=== PATIENT | male | born 1960 | race Caucasian/White ===

== ENCOUNTER 2019-09-08 19:12 | Emergency (ER) | payer BC ==
[2019-09-08] MEDS ORDERED: HYDROCODONE/APAP 10/325 TAB ONE (20:37)
[2019-09-08] MEDS ORDERED: TETANUS & DIPHTHERIA TOX,ADULT 0.5 ML VIAL ONE (20:38)
[2019-09-08] MEDS ORDERED: LIDOCAINE 1% MPF 30 ML VIAL ONE (20:38)
--- NOTE | 2019-09-08 20:42 | RAD REPORT ---
EXAM DESCRIPTION: RAD - Hand Right 3 View - 09/08/2019 8:30 pm CLINICAL HISTORY: SMASH INJURY COMPARISON: No comparisons FINDINGS: Comminuted tuft fracture involves the distal phalanx of the fourth finger with moderate soto rrounding soft tissue swelling.
--- NOTE | 2019-09-08 21:13 | EDPHYS ---
Physician Documentation [facility] Name: Des Galicia Age: 58 yrs Sex: Male : 1960 Arrival Date: 09/08/2019 Time: 19:14 Bed 4 Private MD: ED Physician Salvatore Serna Historical: - Allergies: 09/08 19:31 Percocet; ss 19:31 Percodan; ss - PMHx: 19:31 Hypertension; ss - PSHx: 19:31 Hernia repair; hip sx; ss - Immunization history:: Adult Immunizations up to date. - Coronavirus screen:: The patient has NOT traveled to [place], [place], or [place] in the past 14 days. Proceed with normal triage process as indicated. - Social history:: Smoking status: Patient reports use of chewing tobacco. Patient denies any tobacco usage or history of. - Ebola Screening: : Patient denies exposure to infectious person Patient denies travel to an Ebola-affected area in the 21 days before illness onset. Vital Signs: 19:31 BP 164 / 100; Pulse 62; Resp 16; Temp 98.1(TE); Pulse Ox 97% on R/A; Weight 131.54 kg; ss Height 5 ft. 11 in. (180.34 cm); Pain 9/10; 20:00 BP 143 / 91; Pulse 68; Resp 18; Pulse Ox 100% on R/A; ea 22:04 BP 138 / 88; Pulse 70; Resp 18; Pulse Ox 98% ; ea 19:31 Body Mass Index 40.45 (131.54 kg, 180.34 cm) ss Laceration: 21:43 Wound Repair of 6.5cm ( 2.6in ) subcutaneous laceration to palmar aspect of distal la1 phalanx of right ring finger. Irregularly shaped.. Distal neuro/vascular/tendon intact. Anesthesia: Local anesthetic administered with 6 mls of 1% lidocaine. Wound prep: Moderate cleansing, Copious irrigation. Skin closed with 13 4-0 Prolene using simple sutures and sterile technique. Dressed with tube gauze, non-adherent dressing. Patient tolerated well. MDM: 19:53 Patient medically screened. 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 Exp: ea 08/28/2021. Lot #: [id number]. } Route: IM; Site: left deltoid; 21:11 Follow up: Response: No adverse reaction ea 20:40 Drug: Lidocaine (1 %) 20 ml {Note: by provider.} Volume: 20 ml; Route: Infiltration; ea 21:30 Drug: Cleocin 600 mg Route: IM; Site: left gluteus; ea 21:55 Follow up: Response: No adverse reaction ea Disposition: 09/09 06:47 Co-signature as Attending Physician, Salvatore Serna MD I agree with the assessment and tw4 plan of care. Disposition: 09/08/19 21:12 Discharged to Home. Impression: Displaced fracture of distal phalanx of right ring finger, Laceration of blood vessel of right ring finger. - Condition is Stable. - Discharge Instructions: Laceration Care, Adult, Finger Fracture, [id number]. - Prescriptions for Cleocin 300 mg Oral Capsule - take 1 capsule by ORAL route every 6 hours for 10 days; 40 capsule. Ibuprofen 800 mg Oral Tablet - take 1 tablet by ORAL route every 8 hours As needed take with food; 30 tablet. Tylenol- Codeine #4 300-60 mg Oral Tablet - take 1 tablet by ORAL route every 6 hours As needed; 6 tablet. - Work release form, Medication Reconciliation Form, Thank You Letter, Antibiotic Education, Prescription Opioid Use form. - Follow up: Private Physician; When: Upon discharge from the Emergency Department; Reason: Recheck today's complaints, Continuance of care. - Problem is new. - Symptoms have improved. Addendum: 09/23/2019 05:22 Addendum: Pt is a 58 year old male that sustained a crush injury to his left 4 th digit t w4 of the hand. 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 The object weighed approximately 500 lbs. Pt did not sustain any other injury to left hand or wrist. Pt denies numbness or weakness to left hand . Addendum: ROS: EXT: POSITIVE FOR INJURY TO LEFT FINGER, NEGATIVE FOR DECREASED ROM, NEGATIVE FOR WEAKNESS, NUMBNESS . All other systems negative except as marked. Addendum: PHYSICAL EXAM: General: well developed well nourished male in NAD. Ext: 6.5 cm irregular shaped laceration to distal 4th digit, bleeding controlled with pressure, sensation intact, no other injury to left wrist or hand. Signatures: Dispatcher [employer] EDMS Leah Morales RN RN ss Attema, Lee, SWING TENDER-C SWING TENDER-Cla1 Maria T Black RN RN ea Wadley, Terrence, MD MD tw4 Corrections: (The following items were deleted from the chart) 09/08 22:03 21:12 09/08/2019 21:12 Discharged to Home. Impression: Displaced fracture of distal ea phalanx of right ring finger; Laceration of blood vessel of right ring finger. Condition is Stable. Forms are Medication Reconciliation Form, Thank You Letter, Antibiotic Education, Prescription Opioid Use. Follow up: Private Physician; When: Upon discharge from the Emergency Department; Reason: Recheck today's complaints, Continuance of care. Problem is new. Symptoms have improved. tw4
--- NOTE | 2019-09-08 21:13 | ER ---
Nurse's Notes [facility] Name: Des Galicia Age: 58 yrs Sex: Male : 1960 Arrival Date: 09/08/2019 Time: 19:14 Bed 4 Private MD: Diagnosis: Displaced fracture of distal phalanx of right ring finger;Laceration of blood vessel of right ring finger Presentation: 09/08 19:29 Presenting complaint: Patient states: Smash injury to L fourth finger 1 hour ago. Small ss amount of bleeding noted at this time that is controlled with pressure. Object that caused injury was approximately 500 lbs. Transition of care: patient was not received from another setting of care. Onset of symptoms was September 08, 2019. Risk Assessment: Do you want to hurt yourself or someone else? Patient reports no desire to harm self or others. Initial Sepsis Screen: Does the patient meet any 2 criteria? No. Patient's initial sepsis screen is negative. Does the patient have a suspected source of infection? No. Patient's initial sepsis screen is negative. Care prior to arrival: None. 19:29 Method Of Arrival: Ambulatory ss 19:29 Acuity: YUNIEL 2 ss Triage Assessment: 19:50 General: Appears uncomfortable, Behavior is calm, cooperative, appropriate for age. ea Injury Description: Laceration sustained to palmar aspect of distal phalanx of right ring finger. Historical: - Allergies: 19:31 Percocet; ss 19:31 Percodan; ss - PMHx: 19:31 Hypertension; ss - PSHx: 19:31 Hernia repair; hip sx; ss - Immunization history:: Adult Immunizations up to date. - Coronavirus screen:: The patient has NOT traveled to [place], [place], or [place] in the past 14 days. Proceed with normal triage process as indicated. - Social history:: Smoking status: Patient reports use of chewing tobacco. Patient denies any tobacco usage or history of. - Ebola Screening: : Patient denies exposure to infectious person Patient denies travel to an Ebola-affected area in the 21 days before illness onset. Screenin:50 Abuse screen: Denies threats or abuse. Nutritional screening: No deficits noted. ea Tuberculosis screening: No symptoms or risk factors identified. Fall Risk None identified. Assessment: 19:50 General: Appears uncomfortable, Behavior is appropriate for age. Pain: Complains of ea pain in right hand. Neuro: Level of Consciousness is awake, alert, obeys commands, Oriented to person, place, time, situation. Cardiovascular: Patient's skin is warm and dry. Respiratory: Airway is patent Respiratory effort is even, unlabored, Respiratory pattern is regular, symmetrical. Musculoskeletal: Swelling present in palmar aspect of distal phalanx of right ring finger. 20:45 Reassessment: Patient and/or family updated on plan of care and expected duration. Pain ea level reassessed. Patient is alert, oriented x 3, equal unlabored respirations, skin warm/dry/pink. 21:58 Reassessment: Patient and/or family updated on plan of care and expected duration. Pain ea level reassessed. Patient is alert, oriented x 3, equal unlabored respirations, skin warm/dry/pink. Discharge instruction given to patient, verbalized the understanding of instruction. Pt left ED ambulatory accompanied by family. Vital Signs: 19:31 BP 164 / 100; Pulse 62; Resp 16; Temp 98.1(TE); Pulse Ox 97% on R/A; Weight 131.54 kg; ss Height 5 ft. 11 in. (180.34 cm); Pain 9/10; 20:00 BP 143 / 91; Pulse 68; Resp 18; Pulse Ox 100% on R/A; ea 22:04 BP 138 / 88; Pulse 70; Resp 18; Pulse Ox 98% ; ea 19:31 Body Mass Index 40.45 (131.54 kg, 180.34 cm) ED Course: 19:14 Patient arrived in ED. cf2 19:30 Triage completed. ss 19:31 Arm band placed on right wrist. ss 19:48 Maria T Black, RN is Primary Nurse. ea 19:50 Patient has correct armband on for positive identification. Bed in low position. Call ea light in reach. Side rails up X2. 19:53 Salvatore Serna MD is Attending Physician. tw4 20:31 XRAY Hand RIGHT 3 View In Process Unspecified. EDMS 21:13 Assist provider with laceration repair on palmar aspect of distal phalanx of right ring ea finger that was between 2.6 to 7.5 cm using sutures. Set up tray. Performed by Salvatore Serna MD Dressed with Kerlix, Neosporin, Patient tolerated well. 22:03 Patient did not have IV access during this emergency room visit. 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 Exp: ea 08/28/2021. Lot #: [id number]. } Route: IM; Site: left deltoid; 21:11 Follow up: Response: No adverse reaction ea 20:40 Drug: Lidocaine (1 %) 20 ml {Note: by provider.} Volume: 20 ml; Route: Infiltration; ea 21:30 Drug: Cleocin 600 mg Route: IM; Site: left gluteus; ea 21:55 Follow up: Response: No adverse reaction ea Outcome: 21:12 Discharge ordered by . tw4 22:03 Discharged to home ambulatory, with significant other. ea 22:03 Condition: stable 22:03 Discharge instructions given to patient, Instructed on discharge instructions, follow up and referral plans. medication usage, Demonstrated understanding of instructions, follow-up care, medications, Prescriptions given X 3. 22:03 Patient left the ED. ea Signatures: Dispatcher [employer] EDVA Leah Morales RN RN ss Antunez, Elena RN Salvatore Kwok ea, MD MD tw4 Abisai Jacobsen cf2 Corrections: (The following items were deleted from the chart) 19:32 19:29 Presenting complaint: Patient states: Smash injury to L fourth finger 1 hour ago. ss Small amount of bleeding noted at this time that is controlled with pressure. ss 20:40 20:39 Garner 10 mg-325 mg 1 tabs PO ea ea 21:12 21:11 Response: No adverse reaction ea ea
[2019-09-08] MEDS ORDERED: CLINDAMYCIN IV 150 MG/ML (4 mL) VIAL ONE (21:22)
[2019-09-08 22:26] VITALS: TEMP 98.1
[2019-09-08 22:30] VITALS: BP 138/88; O2SAT 98
== END 2019-09-08 22:03 | disposition home or self-care (01) ==
LOC: ER 19:12
PROC: 0JQJ0ZZ Repair Right Hand Subcutaneous Tissue and Fascia, Open Approach (ICD-10-PCS; principal; 2019-09-08)
DX: S62.634A Displaced fracture of distal phalanx of right ring finger, initial encounter for closed fracture (principal); S65.514A Laceration of blood vessel of right ring finger, initial encounter; X58.XXXA Exposure to other specified factors, initial encounter; Y93.9 Activity, unspecified; Y92.9 Unspecified place or not applicable; Z23 Encounter for immunization; Z88.5 Allergy status to narcotic agent; F17.220 Nicotine dependence, chewing tobacco, uncomplicated; I10 Essential (primary) hypertension
CPT/HCPCS: 73130; 90471; 90714; 96372; 99284; 12002; S0077

== ENCOUNTER 2021-07-28 12:33 | Emergency (ER) | payer BC ==
[2021-07-28] MEDS ORDERED: CASIRIVIMAB/IMDEVIMAB 10 ML VIAL ONE (14:36)
[2021-07-28] MEDS ORDERED: NA CHLORIDE 0.9% 250 ML ONE (14:37)
--- NOTE | 2021-07-28 15:20 | EDPHYS ---
Physician Documentation [facility] Name: Des Galicia Age: 60 yrs Sex: Male : 1960 Arrival Date: 07/28/2021 Time: 12:34 Bed 23 Private MD: Stu Haji B ED Physician Roland Oakley HPI: 07/28 15:17 This 60 yrs old Male presents to ER via Ambulatory with complaints of covid+ otc test. kb 15:17 The patient or guardian reports cough, that is intermittent, described as mild, flu kb symptoms, low-grade fever, myalgias. Onset: The symptoms/episode began/occurred yesterday. Severity of symptoms: At their worst the symptoms were moderate, in the emergency department the symptoms are unchanged. The patient has not experienced similar symptoms in the past. The patient has not recently seen a physician. 15:18 Modifying factors: The symptoms are alleviated by nothing, the symptoms are aggravated kb by nothing. Associated signs and symptoms: Pertinent positives: sore throat. Pt reports bodyaches, cough, sore throat, headache since last night. Took a home COVID test and was positive. Called PCP and was told to come to ER for a test and antibody infusion. Pt states he wants to be tested to make sure he has it before getting the infusion. Historical: - Allergies: 12:49 Percocet; vg1 12:49 Percodan; vg1 - PMHx: 12:49 Hypertension; Cancer-Skin; Arterial Ventricular Necrosis; vg1 - PSHx: 12:49 Spinal Fusion; vg1 - Immunization history:: Client reports receiving the 2nd dose of the Covid vaccine. - Social history:: Smoking status: Patient denies any tobacco usage or history of. ROS: 15:16 Abdomen/GI: Negative for abdominal pain, nausea, vomiting, diarrhea, and constipation. kb 15:16 Constitutional: Positive for body aches, fatigue, malaise. 15:16 ENT: Positive for sore throat. 15:16 Respiratory: Positive for cough, Negative for dyspnea on exertion, hemoptysis, orthopnea, pleurisy, shortness of breath, sputum production, wheezing. 15:16 Neuro: Positive for headache. 15:16 All other systems are negative. Exam: 15:17 Constitutional: This is a well developed, well nourished patient who is awake, alert, kb and in no acute distress. Head/Face: Normocephalic, atraumatic. ENT: Moist Mucous membranes Cardiovascular: Regular rate and rhythm with a normal S1 and S2. No gallops, murmurs, or rubs. No pulse deficits. Respiratory: Respirations even and unlabored. No increased work of breathing. Talking in full sentences Skin: Warm, dry with normal turgor. Normal color. MS/ Extremity: Pulses equal, no cyanosis. Neurovascular intact. Full, normal range of motion. Neuro: Awake and alert, GCS 15, oriented to person, place, time, and situation. Moves all extremities. Normal gait. Psych: Awake, alert, with orientation to person, place and time. Behavior, mood, and affect are within normal limits. Vital Signs: 12:45 BP 168 / 81; Pulse 92; Resp 20; Temp 99.9(O); Pulse Ox 96% ; Weight 134.72 kg; Height 5 vg1 ft. 11 in. (180.34 cm); Pain 7/10; 15:16 BP 151 / 72; Pulse 89; Resp 18 S; Temp 99.9(TE); Pulse Ox 97% on R/A; iw 12:45 Body Mass Index 41.42 (134.72 kg, 180.34 cm) vg1 MDM: 12:49 Patient medically screened. kb 15:17 Data reviewed: vital signs, nurses notes. Data interpreted: Pulse oximetry: on room air kb is 96 %. Interpretation: normal. Counseling: I had a detailed discussion with the patient and/or guardian regarding: the historical points, exam findings, and any diagnostic results supporting the discharge/admit diagnosis, lab results, the need for outpatient follow up, a family practitioner, to return to the emergency department if symptoms worsen or persist or if there are any questions or concerns that arise at home. 07/28 12:49 Order name: COVID-19 SARS RT PCR (Document "Date of Onset" if Symptomatic); Complete kb Time: 14:25 Administered Medications: 15:11 Drug: REGEN-COV Dose Pack 120 mg/mL-120 mg/mL (EUA) 1 application Route: IV; Rate: iw calculated rate; Site: right antecubital; 16:15 Follow up: IV Status: Completed infusion iw 15:34 Drug: Tylenol 1000 mg Route: PO; iw 16:30 Follow up: Response: No adverse reaction iw Disposition: 19:51 Co-signature as Attending Physician, Roland Oakley MD I agree with the assessment and kdr plan of care. Disposition Summary: 07/28/21 15:19 Discharge Ordered Location: Home kb Condition: Stable kb Diagnosis - Coronavirus infection, unspecified kb Followup: kb - With: Emergency Department - When: As needed - Reason: Worsening of condition Followup: kb - With: Private Physician - When: 2 - 3 days - Reason: Recheck today's complaints, Continuance of care, Re-evaluation by your physician Discharge Instructions: - Discharge Summary Sheet kb - Viral Respiratory Infection, Urnd-Oo-Txoj kb - COVID-19 kb Forms: - Medication Reconciliation Form kb - Thank You Letter kb - Antibiotic Education kb - Prescription Opioid Use kb Signatures: Dispatcher [employer] EDMS Li Sosa, AERIAL ADVERTISER-C YESENIA-Roland Nunez MD MD kdr Williams, Irene, RN RN Celine Crump RN RN vg1
--- NOTE | 2021-07-28 15:20 | ER ---
Nurse's Notes [facility] Name: Des Galicia Age: 60 yrs Sex: Male : 1960 Arrival Date: 07/28/2021 Time: 12:34 Bed 23 Private MD: Stu Haji B Diagnosis: Coronavirus infection, unspecified Presentation: 07/28 12:45 Chief complaint: Patient states: headache, achiness, sore throat, and cough began last vg1 night. Denies NVD. States took home covid test and results are positive; was told by PCP Dr Haji to come to ED to take another covid test 'to be sure' and to receive the antibodies. Coronavirus screen: Vaccine status: Patient reports receiving the 2nd dose of the covid vaccine. Client denies travel out of the [place] in the last 14 days. Ebola Screen: Patient negative for fever greater than or equal to 101.5 degrees Fahrenheit, and additional compatible Ebola Virus Disease symptoms. Initial Sepsis Screen: Does the patient meet any 2 criteria? No. Patient's initial sepsis screen is negative. Does the patient have a suspected source of infection? No. Patient's initial sepsis screen is negative. Risk Assessment: Do you want to hurt yourself or someone else? Patient reports no desire to harm self or others. Onset of symptoms was July 27, 2021. 12:45 Method Of Arrival: Ambulatory vg1 12:45 Acuity: YUNIEL 3 vg1 Triage Assessment: 12:49 General: Appears in no apparent distress. uncomfortable, Behavior is calm, cooperative. vg1 Pain: Complains of pain in generalized body Pain currently is 8 out of 10 on a pain scale. Respiratory: Airway is patent Respiratory effort is even, unlabored. Historical: - Allergies: 12:49 Percocet; vg1 12:49 Percodan; vg1 - PMHx: 12:49 Hypertension; Cancer-Skin; Arterial Ventricular Necrosis; vg1 - PSHx: 12:49 Spinal Fusion; vg1 - Immunization history:: Client reports receiving the 2nd dose of the Covid vaccine. - Social history:: Smoking status: Patient denies any tobacco usage or history of. Screenin:06 Abuse screen: Denies threats or abuse. Denies injuries from another. Nutritional iw screening: No deficits noted. Tuberculosis screening: No symptoms or risk factors identified. Fall Risk None identified. Assessment: 13:05 General: Appears in no apparent distress. Behavior is calm, cooperative. General: iw Reports feeling ill for fatigue for. Neuro: Level of Consciousness is awake, alert, obeys commands, Oriented to person, place, time, situation, Moves all extremities. Full function. Cardiovascular: Patient's skin is warm and dry. Respiratory: Respiratory effort is even, unlabored, Respiratory pattern is regular, symmetrical. GI: Abdomen is non-distended. Derm: Skin is intact, is healthy with good turgor. Musculoskeletal: Range of motion: intact in all extremities. 15:17 Reassessment: Patient appears in no apparent distress at this time. Patient and/or iw family updated on plan of care and expected duration. Pain level reassessed. Patient is alert, oriented x 3, equal unlabored respirations, skin warm/dry/pink. 16:15 Reassessment: infusion complete, will monitor for one hour post infusion per protocol. iw Vital Signs: 12:45 BP 168 / 81; Pulse 92; Resp 20; Temp 99.9(O); Pulse Ox 96% ; Weight 134.72 kg; Height 5 vg1 ft. 11 in. (180.34 cm); Pain 7/10; 15:16 BP 151 / 72; Pulse 89; Resp 18 S; Temp 99.9(TE); Pulse Ox 97% on R/A; iw 12:45 Body Mass Index 41.42 (134.72 kg, 180.34 cm) vg1 ED Course: 12:34 Patient arrived in ED. am2 12:34 Stu Haji MD is Private Physician. am2 12:49 Triage completed. vg1 12:49 Li [facility]C [facility]. kb 12:49 Roland Oakley MD is Attending Physician. kb 12:49 Arm band placed on. vg1 13:03 COVID-19 SARS RT PCR (Document "Date of Onset" if Symptomatic) Sent. iw 13:05 Antoinette Mariee, RN is Primary Nurse. iw 15:00 Inserted saline lock: 20 gauge in right antecubital area, using aseptic technique. iw Administered Medications: 15:11 Drug: REGEN-COV Dose Pack 120 mg/mL-120 mg/mL (EUA) 1 application Route: IV; Rate: iw calculated rate; Site: right antecubital; 16:15 Follow up: IV Status: Completed infusion iw 15:34 Drug: Tylenol 1000 mg Route: PO; iw 16:30 Follow up: Response: No adverse reaction iw Outcome: 15:19 Discharge ordered by MD. ingram 17:19 Patient left the ED. kj1 Signatures: Li Sosa, IMAGE SCIENTIST-C YESENIA-Antoinette Guzman RN RN iw Moreno, Amanda am2 Kalyn Sosa kj1 Celine Carr RN RN vg1
[2021-07-28] MEDS ORDERED: ACETAMINOPHEN 500 MG TAB ONE (15:33)
[2021-07-28 17:35] VITALS: TEMP 99.9
[2021-07-28 17:36] VITALS: BP 151/72; O2SAT 97
== END 2021-07-28 17:19 | disposition home or self-care (01) ==
LOC: ER 12:33
DX: U07.1 COVID-19 (principal); I10 Essential (primary) hypertension
CPT/HCPCS: 96365; 99283; U0003; J7050